=== PATIENT | female | born 1985 ===

== ENCOUNTER 2024-01-17 03:29 | Outpatient (CLI) | payer OTHER, SELFPAY ==
[2024-01-17 11:36] LABS: Abs Immature Grans 0.04 10^3/uL (0.0-0.06); Absolute Basophil Count 0.04 10^3/uL (0.0-0.2); Absolute Eosinophil Count 0.17 10^3/uL (0.0-0.7); Absolute Lymphocyte Count 0.84 10^3/uL (1.2-3.4); Absolute Neutrophil Count 4.87 10^3/uL (1.2-6.7); Basophils % 0.6 %; Eosinophils % 2.6 %; HCT 34.9 % (36.0-46.0); HGB 11.4 g/dL (11.2-15.7); Immature Grans % 0.6 %; MCH 28.5 pg (27.0-33.0); MCHC 32.7 % (32.0-36.0); MCV 87 fL (80-95); MPV 10.5 fL (8.0-11.0); Monocytes % 7.7 %; Neutrophils % 75.5 %; Platelet Count 247 10^3/uL (130-400); RDW 14.3 % (11.7-14.6); RDW-SD 46.1 fL; WBC 6.46 10^3/uL (4.4-10.8)
[2024-01-17 19:31] LABS: Hepatitis B Surface Ag Negative (Negative)
[2024-01-17 20:02] LABS: HIV-1/2 Ag & Ab Screen Negative (Negative)
[2024-01-17 20:08] LABS: Hepatitis C Ab w Rflx HCV PCR Negative (Negative)
[2024-01-18 11:35] LABS: Varicella IgG Antibody Positive (See Note)
[2024-01-18 11:40] LABS: Rubella IgG Ab (UVM) Positive (See Note)
[2024-01-19 17:24] LABS: Syphilis IgG w/Reflex Nonreactive (Nonreactive)
== END 2024-01-17 03:30 | disposition home or self-care (01) ==
LOC: LBO 03:29
PROVIDERS: Advanced Practice Midwife; Visit Provider Advanced Practice Midwife
DX: Z34.91 Encounter for supervision of normal pregnancy, unspecified, first trimester (principal)
CPT/HCPCS: 36415; 86787; 86803; 86850; 86900; 86901; 87340; 87389; 85025; 86762; 86780

== ENCOUNTER 2024-01-17 11:00 | Outpatient (REF) | payer OTHER, SELFPAY ==
[2024-01-18 13:01] LABS: Chlamydia Result Negative (Negative); GC Result Negative (Negative)
== END 2024-01-17 11:01 | disposition home or self-care (01) ==
LOC: LBN 11:00
PROVIDERS: Visit Provider Advanced Practice Midwife
DX: O34.218 Maternal care for other type scar from previous cesarean delivery (principal); Z11.3 Encounter for screening for infections with a predominantly sexual mode of transmission; Z3A.16 16 weeks gestation of pregnancy
CPT/HCPCS: 87491; 87591; 87086

== ENCOUNTER 2024-04-18 03:06 | Outpatient (CLI) | payer OTHER, SELFPAY ==
[2024-04-18 15:44] LABS: HCT 31.6 % (36.0-46.0); HGB 10.1 g/dL (11.2-15.7); MCH 28.5 pg (27.0-33.0); MCV 89 fL (80-95); MPV 10.1 fL (8.0-11.0); Platelet Count 241 10^3/uL (130-400); RBC 3.55 10^6/uL (3.93-5.22); RDW 14.1 % (11.7-14.6); WBC 9.51 10^3/uL (4.4-10.8)
[2024-04-18 15:55] LABS: Glucose,1 Hr (Glucola) 90 mg/dL (80-140)
== END 2024-04-18 03:07 | disposition home or self-care (01) ==
LOC: LBO 03:06
PROVIDERS: Advanced Practice Midwife; Visit Provider Obstetrics & Gynecology
DX: Z34.93 Encounter for supervision of normal pregnancy, unspecified, third trimester (principal)
CPT/HCPCS: 36415; 82950; 85027

== ENCOUNTER 2024-05-06 01:20 | Outpatient (CLI) | payer OTHER, SELFPAY ==
--- NOTE | 2024-05-06 09:45 | DI.US_ITS ---
Exam(s) US OB KINGSLEY WEIGHT EXAM: US OB KINGSLEY WEIGHT CLINICAL HISTORY: uterine fibroids affecting ,O34.10,d25.9. TECHNIQUE: Transabdominal obstetrical ultrasound performed. COMPARISON: US US OB 2-3 TRIMESTER from 02/15/2024 FINDINGS: Number of fetuses: 1 position: CEPHALIC Placental location: There is a grade 2 anterior placenta. No evidence of previa. BIOMETRIC DATA: BPD: 7.44cm, 29weeks 6days HC: 27.71cm, 30weeks 2days AC: 25.67cm, 29weeks 6days FL: 5.5cm, 29weeks EFW: 1,425.21g, 3lb 3.13oz, 3% Composite Age: 29weeks 5days PAULINE: 07/17/2024 Heart Rate: 157bpm Amniotic fluid index: 15.56cm. The largest pocket is 6.6 cm. Umbilical artery: PI: RI: S/D Proximal: PI = 0.99: RI = 0.68: S/D = 3.1 Mid: PI = 1.04: RI = 0.67: S/D = 3.0 Placental: PI = 0.98: RI = 0.57: S/D = 2.3 IMPRESSION: 1. Single live intrauterine gestation as above. 2. Estimated weight is 1425gms. This is the less than 3rd percentile. 3. Amniotic fluid index is 15.6 cm. Largest pocket is 6.6 cm. DATA REPOSITORY:
== END 2024-05-06 01:40 ==
LOC: DI 01:20
PROVIDERS: Visit Provider Advanced Practice Midwife
DX: O34.13 Maternal care for benign tumor of corpus uteri, third trimester (principal); D25.9 Leiomyoma of uterus, unspecified; Z3A.30 30 weeks gestation of pregnancy
CPT/HCPCS: 76816

== ENCOUNTER 2024-07-04 11:49 | Outpatient (REF) | payer OTHER, SELFPAY | END 2024-07-04 11:50 | disposition home or self-care (01) | LOC: LBN 11:49 | PROVIDERS: Visit Provider Obstetrics & Gynecology | DX: Z34.93 Encounter for supervision of normal pregnancy, unspecified, third trimester (principal) | CPT/HCPCS: 87081 ==

== ENCOUNTER 2024-07-16 03:19 | Outpatient (CLI) | payer OTHER, SELFPAY ==
[2024-07-16 10:56] LABS: Abs Immature Grans 0.12 10^3/uL (0.0-0.06); Absolute Basophil Count 0.04 10^3/uL (0.0-0.2); Absolute Eosinophil Count 0.04 10^3/uL (0.0-0.7); Absolute Lymphocyte Count 0.81 10^3/uL (1.2-3.4); Absolute Monocyte Count 0.84 10^3/uL (0.1-0.8); Basophils % 0.5 %; Eosinophils % 0.5 %; HCT 35.9 % (36.0-46.0); HGB 11.7 g/dL (11.2-15.7); Immature Grans % 1.6 %; Lymphocytes % 10.7 %; MCH 29.4 pg (27.0-33.0); MCHC 32.6 % (32.0-36.0); MCV 90 fL (80-95); MPV 11.4 fL (8.0-11.0); Monocytes % 11.1 %; Neutrophils % 75.6 %; Platelet Count 167 10^3/uL (130-400); RBC 3.98 10^6/uL (3.93-5.22); RDW 14.9 % (11.7-14.6); RDW-SD 49.6 fL; WBC 7.55 10^3/uL (4.4-10.8)
== END 2024-07-16 03:20 | disposition home or self-care (01) ==
LOC: LBO 03:19
PROVIDERS: Visit Provider Obstetrics & Gynecology
DX: Z01.818 Encounter for other preprocedural examination (principal)
CPT/HCPCS: 36415; 86850; 86900; 86901; 85025

== ENCOUNTER 2024-07-16 19:30 | Inpatient (IN) | payer OTHER, SELFPAY ==
[2024-07-16] VITALS (11 sets, daily range): BP systolic 117–121; BP diastolic 59–64; PULSE 79–97; RESP 18; TEMP 36.8–37.1; O2SAT 97–99; BMI 31.2
--- NOTE | 2024-07-16 19:50 | HPE_ITS ---
Date of service: 07/16/24 Time of Service: 19:50 Assessment and Plan Assessment and plan (1) : Status: Acute Assessment and plan: at 39 weeks and 3 days. Spontaneous rupture of membranes. Previous delivery. Will proceed to the OR tonight for repeat delivery. Risk, benefits, and alternatives all discussed with the patient in full informed consent was previously obtained. (2) Uterine fibroids affecting : Status: Acute Assessment and plan: 5 cm, anterior, calcified, 2 cm posterior (3) Advanced maternal age (AMA) in : Status: Acute (4) History of delivery: OB-HPI Labor/Delivery History of Present Illness Reason for Visit: Delivery Chief Complaint: Suspected Rupture of Membranes , Associated Signs and Symptoms of Suspected ROM: Gush of fluid. PAULINE Calculator Estimated Delivery Date Method Current WG Current Estimate 07/20/24 Ultrasound #1 39w 3d Other Estimates 06/30/24 LMP (Certain) 42w 2d Comments: Patient is scheduled for repeat section 07/17/2024. She called with spontaneous rupture of membranes for a large amount of clear fluid tonight. She presented to the hospital with gross rupture of membranes. Vital signs are stable. heart tones are appropriate at 150 moderate variability. She is awaiting the arrival of her . Will notify the OR crew for her repeat C- section tonight. All questions were answered. History of Present Expected Delivery Route/Plan RCS, CNM care until third trimester per patient request. Yunior Begin - second baby together Specific Issues/Plan 1. Prior CS: records request sent 01/16 for op note and office labs. resent 02/14____ 2. Uterine fibroids one measuring 5.5 x 5.5 cms and another 1.8 cms noted at 1st trimester US. Calcifications suggesting Uterine fibroids noted on 20 week US at [facility], schedule 32 week growth US 2a. Ultrasound findings reviewed in [place] in 2019 shows 6.3 myometrial fibroid in superior uterus and 6.9 myometrial fibroid in the mid anterior wall. 3. AMA, declines cfDNa and MFM / Level II US at initial OB visit, CF previously neg 2019 and SMA not done with previous 4. counseled on lo-dose ASA due to AMA and [place] ethnicity, she declines 5. Anemia Hgb 10.1 HCT 31.6- Was taking gummies, ferrous sulfate escribed to brenda e daily, Narrative: Spontaneous rupture of membranes tonight at approximately 6:30 PM. Will proceed to the OR tonight for repeat delivery. Review of Systems Constitutional Constitutional: Reports as per HPI and Reports system reviewed and no additional complaints, except as documented Eyes Eyes: Reports system reviewed and no additional complaints, except as documented Cardiovascular Cardiovascular: Reports system reviewed and no additional complaints, except as documented Respiratory Respiratory: Reports system reviewed and no additional complaints, except as documented Gastrointestinal Gastrointestinal: Reports system reviewed and no additional complaints, except as documented Genitourinary Genitourinary: Reports system reviewed and no additional complaints, except as documented Musculoskeletal Musculoskeletal: Reports system reviewed and no additional complaints, except as documented Integumentary/Breasts Skin/Breast: Reports system reviewed and no additional complaints, except as documented Psychiatric Psychiatric: Reports system reviewed and no additional complaints, except as documented PFSH All Active Problems (Updated 05/22/24 @ 12:35 by Marcia Chester DO) IUGR (intrauterine growth restriction) affecting care of mother (Acute) Seen at [facility]. Appropriate growth. Appropriate fluid. Anemia (Chronic) Advanced maternal age (AMA) in (Acute) Uterine fibroids affecting (Acute) (Acute) Surgical History History of delivery Family History Mother Stroke Hypertension Social History Smoking/Tobacco Use Status: Never Second Hand Exposure: No Smoking risk assessment performed?: Yes Alcohol Intake: never Drug use: Never Adopted: No Household members: spouse and children Housing: apartment Number of Children: 1 Communication Needs: None Pets and animals: No Sexually active: Yes Do you think of yourself as: straight/heterosexual Current gender identity: female What is your relationship status?: living with partner How often do you talk on the phone with friends or family?: three or more times per week How often do you get together with friends or relatives?: three or more times per week How often do you attend episcopalian or mandaeism services?: decline to answer Do you belong to any clubs or organized social groups?: decline to answer Panel score (0-1 are the most socially isolated patients): 2 What type of physical activity do you participate in: walking and aerobic Duration: 15-30 minutes/day Frequency: 3-4 times per week Special chadwick needs: No Agree to transfusion: Yes Seatbelt use: always Helmet use: No Drive intox or ride w/intox corporate driver: No Do you feel safe at home: Yes Do you feel safe in your relationship?: Yes Victim of physical abuse: No Victim of emotional abuse: No Victim of sexual abuse: No Would you like helpful sources: No History History 2 Para 1 Hx # Term Pregnancies 1 Multiple births Hx # Pregnancies Ectopic pregnancies AB induced Hx Number of Living Children 1 AB spontaneous Past Pregnancies Del. Date GA/Weeks # Preg Succ Route Wgt Sex Labor Lgth Anesth esia Location Prov Complic 01/13/19 40 Yes 8 lb 9 oz Male 48 hrs Si zbigniew, FEMI Meds Allergies and Home Medications Allergies Allergy/AdvReac Type Severity Reaction Status Date / Time No Known Allergies Allergy Verified 07/16/24 09:46 Home Medications ?Medication ?Instructions ?Recorded ?Confirmed ?Type vitamin #56-iron 35 mg 1 cap PO DAILY 01/17/24 04/09/24 History and 5 mg-folic acid 1 mg-dha capsule ferrous sulfate 325 mg (65 mg 325 mg PO DAILY #30 tabs 04/18/24 Rx iron) tablet (Feosol) Exam Physical Exam Vital Signs Reviewed: Yes Constitutional Constitutional: no acute distress Detailed Labor and Delivery Exam Smith Score: Cervical Points Exam 0 1 2 3 Dilation Closed 1-2cm 3-4 cm 5-6cm Effacement 0-30% 40-50% 60-70% 80% Consistency Firm Medium Soft Station -3 -2 -1,0 +1,+2 Position Posterior Mid Anterior Fetus A Heart Rate Baseline: 145 Monitor Accelerations: Present Monitor Decelerations: None Variability: Moderate (6-25 BPM) Est. Weight: 7 lb 8 oz Date of Membrane Rupture: 07/16/24 Time of Membrane Rupture: 18:30 Assessment Note: Category 1, reactive nonstress test HEENT Exam HEENT Exam: Normal Neck Exam Neck Exam: Normal Chest/Brest/Axilla Exam Chest Exam: Normal Respiratory Exam Respiratory Exam: Normal Detailed Respiratory Exam Respiratory: Present CTA bilaterally; Absent rales, rhonchi or wheezes Detail Cardiovascular Exam Cardiovascular: Present RRR, S1 and S2; Absent murmur Extremities Exam Extremities Exam: Normal Skin Exam Skin Exam: Normal Neurological Exam Neurological Exam: Normal Psychiatric Exam Psychiatric Exam: Normal Risk Assessment Risk for Shoulder Dystocia Historical/Initial OB: NEGATIVE FOR: Pelvic Abnormality, Pre- BMI>30, Previous Shoulder Dystocia or Previous Macrosomia Date/Initial: planning repeat C/S KH Risk for Pre-Eclampsia Date Initiated/Initials: 01/17/24 KH Yes, if one or more: NEGATIVE FOR: Hx Pre-E/Gest HTN, Chronic HTN, Multiple Gestation, Pre-gestational DM, Renal Disease, Systemic Lupus or APA Syndrome Yes, if 2 or more: POSITIVE FOR: Age>= 35 yrs and ethinicty Risk for Post- Hemorrhage Initial: NEGATIVE FOR: Multiple Gestation, Previous PPH, Known Clotting Deficiency, Grand Multiparity or Anticoagulation Risks Reviewed Risks Reviewed Upon Admission: Yes
[2024-07-16] MEDS: Lactated Ringers 1,000 ML 200 ML IV (20:38)
[2024-07-16] MEDS: AZITHROMYCIN 500 MG in Normal Saline 250 ML 250 MG IVPB (21:01)
--- NOTE | 2024-07-16 21:08 | ANES.PREOP_ITS ---
General Info Date of Service Date Performed: 07/16/24 Height: 5 ft Weight: 72.575 kg Body Mass Index (BMI): 31.2 Surgical Procedure: Operation Date: 07/16/24 21:00 Proposed Procedure Side Surgeon p Section Marcia Chester, DO Actual Procedure Side Surgeon p Section Marcia Chester, DO Pre-Op Diagnosis Post-Op Diagnosis RUPTURED MEMBRANE/ ADVANCED MATERNAL AGE RUPTURED MEMBRANE/ ADVANCED MATERNAL AGE Meds Allergies and Home Medications Allergies Allergy/AdvReac Type Severity Reaction Status Date / Time No Known Allergies Allergy Verified 07/16/24 09:46 Home Medication ?Medication ?Instructions ?Recorded vitamin #56-iron 35 mg 1 cap PO DAILY 01/17/24 and 5 mg-folic acid 1 mg-dha capsule ferrous sulfate 325 mg (65 mg 325 mg PO DAILY #30 tabs 04/18/24 iron) tablet (Feosol) Current Visit Medications: Current Medications Generic Name Dose Route Start Last Admin Trade Name Freq PRN Reason Stop Dose Admin Citric Acid/Sodium Citrate 30 ml 07/16/24 20:00 Sodium Citrate 30 Ml Cup PO PREOP KARRIE Cefazolin Sodium/Dextrose 2 gm in 50 mls @ 100 mls/hr 07/16/24 19:30 Ancef Duplex IVPB PREOP KARRIE Azithromycin 500 mg/ Sodium 250 mls @ 250 mls/hr 07/16/24 19:30 07/16/24 21:01 Chloride IVPB 250 mls/hr PREOP KARRIE Administration Ringer's Solution 1,000 mls @ 200 mls/hr 07/16/24 19:30 07/16/24 20:38 IV 200 mls/hr INFUSION KARRIE Administration IV Miscellaneous Supplies 1 each 07/16/24 19:30 Iv Access IV DIRECTED KARRIE Sodium Chloride 0 ml 07/16/24 19:30 Normal Saline Flush 10 Ml Syr IVP PRN PRN Sodium Chloride 0 ml 07/16/24 20:00 Normal Saline Flush 10 Ml Syr IVP BID KARRIE Sodium Chloride 0 ml 07/16/24 19:30 Normal Saline 10 Ml Vial IJ DIRECTED PRN PFSH Active Problems Active Problems: Problem Status Onset Code IUGR (intrauterine growth restriction) affecting care of mother Acute O36.5990 Anemia Chronic D64.9 Advanced maternal age (AMA) in Acute Uterine fibroids affecting Acute O34.10, D25.9 Acute Z34.90 Surgical History Surgical History History of delivery Tobacco Smoking/Tobacco Use Status: Never Second hand exposure: No Alcohol Alcohol Intake: never Substance Use Substance use: Never Prental History History 2 Para 1 Hx # Term Pregnancies 1 Multiple births Hx # Pregnancies Ectopic pregnancies AB induced Hx Number of Living Children 1 AB spontaneous Past Pregnancies Del. Date GA/Weeks # Preg Succ Route Wgt Sex Labor Lgth Anesth esia Location Prov [facility] 01/13/19 40 Yes 3883.885 g Male 48 hrs S FEMI [place] Vital Signs and Lab Results Vital Signs Most Recent Vital Signs in EMR: Most Recent Vital Signs Temp Pulse Resp BP Pulse Ox 36.8 C 84 18 117/64 97 07/16/24 20:08 07/16/24 20:22 07/16/24 20:08 07/16/24 20:08 07/16/24 20:21 Lab Results Blood Type / Crossmatch: Antibody Screen NEGATIVE 07/16/24 Complete Blood Count: White Blood Count 7.55 10^3/uL (4.4-10.8) 07/16/24 10:48 Red Blood Count 3.98 10^6/uL (3.93-5.22) 07/16/24 10:48 Hemoglobin 11.7 g/dL (11.2-15.7) 07/16/24 10:48 Hematocrit 35.9 % (36.0-46.0) L 07/16/24 10:48 Platelet Count 167 10^3/uL (130-400) 07/16/24 10:48 Complete Metabolic Panel: No Data to Display Liver Function Panel: No Data to Display Coagulation Panel: No Data to Display Cardiac Panel: No Data to Display Arterial Blood Gas: No Data to Display Venous Blood Gas: No Data to Display Pancreas Panel: No Data to Display Thyroid Panel: No Data to Display Infectious Disease: No Data to Display Blood Cultures: No Data to Display Toxicology Panel: No Data to Display Panel: No Data to Display Anesthesia Assessment and Plan Anesthesia History Personal History: No History of Anesthesia Complications Family History: No Family History of Anesthesia Complications Exercise Tolerance Exercise Tolerance: Metabolic Equivalents>4 Pertinent Negatives Pertinent Negatives: No Symptoms of GERD Cardiac & Pulmonary Exam Cardiac Exam: Normal S1/S2 Heart Sounds Pulmonary Exam: Clear Bilateral Breath Sounds Implantable Cardiac Device Does patient have a Pacemaker or an ICD?: No Airway Exam Known Difficult Airway: No Mallampati Class: 3 Mouth Opening: Normal (> 3cm) Thyromental Distance: Greater than 3 cm Neck Range of Motion: Full ROM Neck Circumference: Normal Teeth Condition: Normal Dentition ASA Classification ASA Score: ASA 2 Emergency Case?: No NPO Status NPO Status: NPO Clear Liquids>2 hours Status Status: Confirmed (full term) Anesthesia Plan Resuscitation Status: Full Code Anesthesia Technique: Spinal Anesthesia Airway Planned: Natural Airway Monitors Used: Standard Monitors
[2024-07-16] MEDS: Lactated Ringers 1,000 ML 150 ML IV ×2 (21:28→22:43)
[2024-07-16] MEDS: ceFAZolin 2 GM/50 ML BAG IVPB (21:48)
--- NOTE | 2024-07-16 22:16 | PLAC_PTH ---
PATIENT: Ghada Smallwood LOC: OBS U#:[id number] AGE/SX: 39/F ROOM: OBS.305 RE07/16/[address]: Marcia Chester DO : 1985 BED: A DIS: 07/20/2024 SPEC #: [id number] RECD: 07/17/24 12:43 STATUS: SOUT REQ #: [id number] KELLIE: 07/16/24 22:[address]: Marcia Chester DEPT: Surgical Specimen RECD BY: Latonya Gardner ENTERED: 07/17/24 12:43 SP TYPE: PLAC OTHR DR: Unknown,Unknown Tissues: 1 - PLACENTA (3RD TRIMESTER) Procedures: GROSS AND MICRO LEVEL 5 Comments: [id number]
[2024-07-16] MEDS: Bupivacaine 0.25% Pres-Free 30 ML VIAL (23:32)
[2024-07-17] VITALS (120 sets, daily range): BP systolic 102–179; BP diastolic 55–84; PULSE 81–193; RESP 16; TEMP 36.9–37.1; O2SAT 96–100
--- NOTE | 2024-07-17 00:11 | W.ANESPOSTOP ---
Postoperative Evaluation Date, Time and Location Date Performed: 07/17/24 Time Performed: 00:11 Patient Location: Obstetrics Vital Signs Most Recent Imported Vital Signs: Most Recent Vital Signs Temp Pulse Resp BP Pulse Ox 36.8 C 106 H 18 121/59 L 99 07/16/24 20:08 07/17/24 00:10 07/16/24 20:08 07/16/24 23:59 07/17/24 00:10 Assessment Mental Status: Awake (Alert & Oriented to Patient Baseline) Airway and Respiratory Function: Patent airway with normal (patient baseline) respiratory exam Cardiovascular Function: Hemodynamically Stable Hydration Status: Adequately Hydrated Nausea & Vomiting: No Nausea or Vomiting Pain: Pt. Denies Any Pain Peripheral Nerve Block: Patient did not receive a nerve block
--- NOTE | 2024-07-17 00:40 | PDOC.OPNB_ITS ---
Date of service: 07/17/24 Time of Service: 00:40 Operative Note Operative Note Delivery Method: Unscheduled STAT: No and Repeat Previous LT Incision: Yes DATE OF PROCEDURE: 07/16/24 PRE-OP DIAGNOSES: at 39 weeks 4 days, spontaneous rupture of membranes POST-OP DIAGNOSES: same ( malposition, markedly enlarged uterine fibroids) PROCEDURE: Repeat section with a T uterine incision, and T abdominal incision SURGEON: Marcia Chester Insurance Claims Examiner: Neda Carpenter Estimated blood loss (mL): 1,600 Pathology: other (Placenta, cord blood gases) Complications: Other (T uterine incision, T abdominal incision) Patient was transported to: floor Patient's condition: stable Indications: Prior delivery. Uterine fibroids, spontaneous rupture of membranes Findings: Malposition of the fetus with the vertex to the right and wedged behind the anterior uterine fibroid. 5 cm anterior uterine fibroid, 10 to 12 cm posterior uterine fibroid. Delivery of viable male with Apgars 2, 7, 9 Procedure Description: After full informed consent was obtained, patient was taken the operating suite. She had a scheduled repeat section for 07/17/2024, however she presented on 07/16/2024 with spontaneous rupture of membranes. In light of this, the decision was made to proceed with her delivery. The risk, benefits, and alternatives were discussed with the patient in full informed consent had been previously obtained. She had an IV started and was taken the operating suite. She was then placed in the seated position and spinal anesthesia administered. pneumatic compression stockings for DVT prophylaxis. She had surgical site infection prophylaxis with 2 g of Ancef and 500 mg of azithromycin. She was placed in dorsal supine position with leftward tilt and prepped and draped in the usual sterile fashion. She had a vaginal preparation followed by Haywood catheter insertion. Her spinal anesthesia was tested and found to be adequate. A low transverse abdominal incision was made through her previous skin incision. This was carried down to the underlying fascia which was incised in the midline and the fascial incision extended laterally. The rectus muscles were identified and in the midline. The peritoneum was identified and entered sharply. At this point the peritoneal incision was then extended superiorly and inferiorly and the bladder blade was inserted. There was noted to be small amount of filmy adhesions of the bladder to the lower uterine segment which were meticulously dissected away from the lower uterine segment. There was noted to be the previously mentioned anterior uterine fibroid which was more to the right lower quadrant of the uterus. Initially a low transverse uterine incision was made. The lower uterine segment was thick and nonlabored. This was elevated with grasping the incision with Allis clamps. The uterine incision was then extended laterally. At this point the left shoulder was identified and the left arm spontaneously delivered through the incision. On examination, it was very difficult to ascertain the position. The vertex was not low in the pelvis, however more towards the right segment of the uterus, trapped behind the anterior uterine fibroid. In light of this and, with difficulty extracting the fetus atraumatically, the skin incision was extended vertically to approximately 3 cm below the umbilicus, and the uterine incision was extended vertically in a T shape with the Casarez scissors. This allowed for more appropriate exposure of the fetus. The vertex was then swept around underneath the right lower uterine fibroid. The shoulders and body then followed without difficulty. A three-vessel cord was noted, clamped x 2, and cut. The baby was handed off to the waiting pediatric group. At this point a segment of cord was obtained for cord blood sampling. The placenta was manually expressed from the uterus. There was no cord blood drawn. At this point the uterus was elevated out of the abdomen and the abdomen cleared of all clot and debris. The posterior uterine fibroid was markedly enlarged approximately 10 to 12 cm in greatest dimension. With a T shape of the uterine incision, in a systematic fashion first the vertical aspect of the uterine incision was closed with 3 layers of suture of 0 Monocryl. First layer being running locked, second layer being imbricated, and the third layer being reapproximation of the subserosal tissue. With the vertical aspect of the incision closed and hemostasis achieved, the low transverse portion of the uterine incision was closed in a similar fashion with 3 layers, first being running locked, second being imbricating and the third being reapproximation of the subserosal area. There was 1 area at the fundal region of the uterus which was bleeding due to an area that was denuded. This was oversewn with a single stitch. At the apical corner of the T8 uterine incision, there was a modest amount of bleeding which was oversewn with 3 [id number] sutures of 0 Monocryl suture. At this point hemostasis was achieved. Patient did receive TXA for 1 dose. She also had Pitocin for uterine tonicity. Due to the complexity of the uterine incision, and the marked enlargement of the uterus itself, I did feel it necessary to have a second set of surgical eyes intraoperatively. Dr. Hinojosa was called for evaluation. She inspected the uterus, uterine incision, and agreed that hemostasis had been achieved. With this assurance, the uterus was returned to the abdomen. The fascial incision was then closed, first the vertical aspect of the fascial incision to its apex, followed by the transverse aspect of the fascial incision. The subcutaneous tissue both in the vertical and horizontal components of the incision were reapproximated with 3-0 Vicryl to relieve tension from the suture edge. Uterine incision was then closed, first the vertical aspect followed by the horizontal aspect in a subcuticular fashion. Steri-Strips and a sterile dressing were placed. The uterus remained firm throughout the remainder of her procedure it is markedly enlarged and approximately 4 cm above the umbilicus. Haywood catheter was in place, draining clear yellow urine with a urine output intraoperatively of 450 cc. Placenta was sent for examination. Cord blood gases were obtained. Complications were as previously described with malpositioning of the fetus and difficulty in extraction of the vertex around the anterior lower uterine fibroid. This was resolved by extending the uterine incision to allow delivery of the male . All of these findings were discussed both intraoperatively and postoperatively with the patient and her . There was an opportunity for further questions and answers. We will continue to debrief over the course of her postoperative stay. Patient does understand if she has further or ongoing bleeding, the next step in management would be exploratory laparotomy and hysterectomy. All questions were answered today. EBL: 1600 cc Findings: Markedly enlarged fibroid uterus with an anterior lower uterine segment fibroid, and a markedly enlarged posterior uterine fibroid. Delivery of a viable male infant with Apgars to 7 and 9 respectively. Fluid: Crystalloid per anesthesia Pathology: Placenta for examination
[2024-07-17 06:58] LABS: Abs Immature Grans 0.25 10^3/uL (0.0-0.06); Absolute Basophil Count 0.05 10^3/uL (0.0-0.2); Absolute Eosinophil Count 0.05 10^3/uL (0.0-0.7); Basophils % 0.2 %; Eosinophils % 0.2 %; HCT 29.4 % (36.0-46.0); HGB 9.4 g/dL (11.2-15.7); Immature Grans % 1.1 %; Lymphocytes % 2.3 %; MCH 29.5 pg (27.0-33.0); MCV 92 fL (80-95); Monocytes % 5.5 %; Neutrophils % 90.7 %; Platelet Count 152 10^3/uL (130-400); RBC 3.19 10^6/uL (3.93-5.22); RDW 14.9 % (11.7-14.6); RDW-SD 50.7 fL; WBC 22.59 10^3/uL (4.4-10.8)
[2024-07-17 06:59] LABS: Absolute Lymphocyte Count 0.52 10^3/uL (1.2-3.4); Absolute Monocyte Count 1.24 10^3/uL (0.1-0.8); Absolute Neutrophil Count 20.49 10^3/uL (1.2-6.7)
--- NOTE | 2024-07-17 07:13 | W.PM.OBPNV1 ---
Date of service: 07/17/24 Time of Service: 07:13 Exam Physical Exam Vital signs: Temp Pulse Resp BP Pulse Ox 98.7 F 88 16 107/58 L 100 07/17/24 06:05 07/17/24 06:05 07/17/24 06:05 07/17/24 06:05 07/17/24 03:40 Vital Signs Reviewed: Yes Narrative: Doing well, postop day 1 status post repeat section with T uterine incision and vertical extension of her abdominal incision Constitutional Constitutional: no acute distress HEENT Exam HEENT Exam: Normal Neck Exam Neck Exam: Normal Detailed Respiratory Exam Respiratory: Present CTA bilaterally; Absent rales, rhonchi or wheezes Abdominal Exam Comments: Soft, mild distention. Active bowel sounds. Fundal Exam Fundus: Firm Comment: 3 cm above the umbilicus, globally enlarged. Baseline from surgery. Marked uterine fibroids. Extremities Exam Extremity Exam: negative Calf Tenderness or Edema Skin Exam Skin Exam: Normal Neurological Exam Neurological Exam: Normal Psychiatric Exam Psychiatric Exam: Normal
[2024-07-17 07:24] LABS: Diff Comment Diff Reviewed
[2024-07-17 07:25] LABS: RBC Morphology Normal
[2024-07-17] MEDS: Docusate Sodium 100 MG CAP PO (08:22)
[2024-07-17] MEDS: Normal Saline Flush 10 ML SYR IVP (08:23)
[2024-07-17] MEDS: Ibuprofen 600 MG TAB PO ×2 (13:54→22:00)
[2024-07-17] MEDS: Acetaminophen 325 MG TAB 650 MG PO ×2 (13:54→22:01)
[2024-07-18] VITALS (7 sets, daily range): BP systolic 91–111; BP diastolic 53–58; PULSE 86–109; RESP 14–16; TEMP 36.7–37.6; O2SAT 97–98
[2024-07-18] MEDS: Docusate Sodium 100 MG CAP PO ×2 (05:59→21:00)
[2024-07-18] MEDS: Ibuprofen 600 MG TAB PO (05:59)
[2024-07-18] MEDS: Acetaminophen 325 MG TAB 650 MG PO (05:59)
[2024-07-18 07:12] LABS: HCT 25.4 % (36.0-46.0); HGB 8.4 g/dL (11.2-15.7); MCH 29.7 pg (27.0-33.0); MCHC 33.1 % (32.0-36.0); MCV 90 fL (80-95); MPV 11.8 fL (8.0-11.0); Platelet Count 156 10^3/uL (130-400); RBC 2.83 10^6/uL (3.93-5.22); RDW 15.2 % (11.7-14.6); RDW-SD 50.3 fL
[2024-07-18] MEDS: oxyCODONE 5 mg/Acetaminophen 325 mg TAB PO ×3 (12:07→20:55)
--- NOTE | 2024-07-18 12:13 | W.PM.OBPNV1 ---
Date of service: 07/18/24 Time of Service: 12:14 Assessment and Plan Assessment and plan (1) delivery delivered: Status: Acute Assessment and plan: POD 2 pLTCS with vertical extension of transverse KEIKO incision and Pfannenstiel skin incsion. (2) Uterine fibroids affecting : Status: Acute Subjective Subjective Interval history: POD2 pLTCS with uterine extension. Pain controlled with Acetaminophen and Ibuprofen during night. Pt feeling slightly more pain this am. I recommended that she take additional Percocet for pain not controlled with NSAIDs Patient comments: Incisional pain, Tolerating diet (decreased appt) and Flatus present; no Bowel Movement baby status: Doing well, Nursing well, Rooming in and Strong Bonding Observed feeding status: Exclusively breast feeding Exam Physical Exam Vital signs: Temp Pulse Resp BP Pulse Ox 98.8 F 95 H 16 91/57 L 97 07/18/24 07:30 07/18/24 07:30 07/18/24 07:30 07/18/24 07:30 07/18/24 07:30 Vital Signs Reviewed: Yes Constitutional Constitutional: no acute distress Neck Exam Neck Exam: Normal Respiratory Exam Respiratory Exam: Normal Cardiovascular Exam Cardiovascular Exam: Normal Abdominal Exam Abdomen: Tender (Mepilex dressings intact ) Fundal Exam Fundus: Below Umbilicus and Firm Rectal Exam Rectal Exam: Not Done Extremities Exam Extremity Exam: Not Done Back/Spine/Pelvis Exam Back Exam: Normal Skin Exam Skin Exam: Normal Neurological Exam Neurological Exam: Normal Psychiatric Exam Psychiatric Exam: Normal Results Hemoglobin/Hematocrit: Hgb 8.4 g/dL (11.2-15.7) L 07/18/24 06:00 Hct 25.4 % (36.0-46.0) L 07/18/24 06:00 Abnormal Lab Findings: Abnormal Labs 07/17/24 07/18/24 06:05 06:00 WBC 22.59 H 16.20 H RBC 3.19 L 2.83 L Hgb 9.4 L D 8.4 L Hct 29.4 L 25.4 L RDW 14.9 H 15.2 H MPV 12.0 H 11.8 H Absolute Neutrophils 20.49 H Absolute Lymphocytes 0.52 L Absolute Monocytes 1.24 H Additional Findings Results: Drop in H/H expected as 07/17/24 CBC drawn less than 8 hrs after surgery
[2024-07-19 03:00] VITALS: BP 104/58; PULSE 88; RESP 16; TEMP 37.2
[2024-07-19] MEDS: Acetaminophen 325 MG TAB 650 MG PO ×3 (06:30→23:29)
[2024-07-19] MEDS: Docusate Sodium 100 MG CAP PO ×2 (06:30→18:48)
[2024-07-19] MEDS: Ibuprofen 600 MG TAB PO ×4 (06:30→18:48)
[2024-07-19 07:20] VITALS: BP 105/58; PULSE 90; RESP 16; TEMP 37.1; O2SAT 97
--- NOTE | 2024-07-19 08:50 | W.PM.OBPNV1 ---
Date of service: 07/19/24 Time of Service: 08:51 Assessment and Plan Assessment and plan (1) delivery delivered: Status: Acute Assessment and plan: Pt moving slowly after c/s. Not walking much but is OOB. I have recommended additional PP day on BC. Pain controlled with Percocet and NSAIDs. (2) care following delivery: Status: Acute Assessment and plan: breast milk in. Tenderness L breast secondary to ample supply. Recommended symptom relief. Plan discharge to home tomorrow. Subjective Subjective Interval history: Breast milk coming in. Still feeling sore from surgery. Requests another day. Patient comments: Incisional pain, Tolerating diet and Flatus present; no Bowel Movement Patient's Mood: Mood is good. Pleased that infant is well. [place] baby status: Doing well, Nursing well and Strong Bonding Observed feeding status: Exclusively breast feeding Exam Physical Exam Vital signs: Temp Pulse Resp BP Pulse Ox 98.8 F 90 16 105/58 L 97 07/19/24 07:20 07/19/24 07:20 07/19/24 07:20 07/19/24 07:20 07/19/24 07:20 Vital Signs Reviewed: Yes Constitutional Constitutional: no acute distress Breast Exam left upper outer: Breast Exam: Engorged and Tender Nipple Exam: Normal Comments: Pt reports swelling and mild discomfort L breast. Feels that a mild gland is swollen. Has been applying ice. Respiratory Exam Respiratory Exam: Normal Cardiovascular Exam Cardiovascular Exam: Normal Abdominal Exam Abdomen: Tender (incision covered with Mepilex dressing. ) Fundal Exam Fundus: Below Umbilicus and Firm Rectal Exam Rectal Exam: Not Done Extremities Exam Extremity Exam: Normal and Full ROM Back/Spine/Pelvis Exam Back Exam: Normal Skin Exam Skin Exam: Normal Neurological Exam Neurological Exam: Normal Psychiatric Exam Psychiatric Exam: Normal Results Hemoglobin/Hematocrit: Hgb 8.4 g/dL (11.2-15.7) L 07/18/24 06:00 Hct 25.4 % (36.0-46.0) L 07/18/24 06:00 Abnormal Lab Findings: Abnormal Labs 07/17/24 07/18/24 06:05 06:00 WBC 22.59 H 16.20 H RBC 3.19 L 2.83 L Hgb 9.4 L D 8.4 L Hct 29.4 L 25.4 L RDW 14.9 H 15.2 H MPV 12.0 H 11.8 H Absolute Neutrophils 20.49 H Absolute Lymphocytes 0.52 L Absolute Monocytes 1.24 H
[2024-07-19] MEDS: oxyCODONE 5 mg/Acetaminophen 325 mg TAB PO ×2 (11:58→18:48)
[2024-07-19 12:00] VITALS: BP 110/64; PULSE 99; RESP 18; TEMP 37.2; O2SAT 100
[2024-07-19] MEDS: Polyethylene Glycol 3350 17 GM PACKET PO ×2 (13:15→20:19)
[2024-07-19 19:30] VITALS: BP 110/61; PULSE 104; RESP 17; TEMP 37.6; O2SAT 98
[2024-07-19 23:30] VITALS: BP 99/55; PULSE 87; RESP 16; TEMP 37.2; O2SAT 98
[2024-07-20] MEDS: Ibuprofen 600 MG TAB PO ×2 (02:05→09:19)
[2024-07-20 04:30] VITALS: BP 109/53; PULSE 86; RESP 16; TEMP 36.8; O2SAT 98
[2024-07-20] MEDS: Acetaminophen 325 MG TAB 650 MG PO ×3 (04:48→13:09)
[2024-07-20 08:56] VITALS: BP 104/53; PULSE 101; RESP 18; TEMP 37.3; O2SAT 98
[2024-07-20] MEDS: Docusate Sodium 100 MG CAP PO (09:19)
--- NOTE | 2024-07-20 10:11 | W.PM.OBDISCH ---
Date of service: 07/20/24 Time of Service: 10:11 DS: Diagnosis Discharge Diagnosis (1) delivery delivered: Status: Acute (2) care following delivery: Status: Acute (3) Uterine fibroids affecting : Status: Acute Discharge Plan Disposition Patient Disposition: Home Condition: Improving Discharge Details Reason For Visit: Delivery Admit Date/Time: 07/16/24 19:30 Admit Provider: Marcia Chester Attending Provider: Marcia Chester Primary Care Provider: Unknown,Unknown Hospital Course Hospital Course: Pt admitted to with [facility] at 39w3d EGA. Pt had been scheduled for a repeat LTCS the following day. She underwent an unscheduled cesareab delivery. Findings at the time of c/s; malposition of the fetus with the vertex to the right and wedged behind the anterior uterine fibroid. 5 cm anterior uterine fibroid, 10 to 12 cm posterior uterine fibroid. Both skin and uterine incisions were extended vertically and viable male infant was delivered with Apgars 2, 7, 9. Wt [id number]. His parents have named him Tori. Pt's postop course was uncomplicated. She was discharged to home POD 3 successfully breast feeding and ambulatory. She will f/u in [facility] on 07/24/24 for dressing removal. Rx for Percocet efaxed to her pharmacy. 5/325mg every 6 hrs as needed for pain not relieved by Acetaminophen or Ibuprofen She will take OTC NSAIDs for pain. Home Meds and New Rx's Prescriptions: No Action PNV #[id number] acid-dha 35 mg iron-5 mg iron-1 mg capsule 1 cap PO DAILY ferrous sulfate [Feosol] 325 mg (65 mg iron) tablet 325 mg PO DAILY Qty: 30 5RF Discharge Instructions Stand Alone Forms: Instructions, Discharge Instruc Activity:: Activity as Tolerated Equipment/Supplies:: No Equipment Needed Diet:: As Tolerated OB:DS Summary Summary Delivery Method: Repeat Episiotomy Description: None Laceration Description: None Laceration Extension: N/A complications OB DS: none Contraception Discussed Contraception Discussed: No, Gender-Baby A: Male (Tori) weight: 7 lb 11.635 oz Disposition of Baby A: Home Status at Discharge Functional status at discharge: independent ambulation Overall status at discharge: patient is progressing back to baseline Mental Status: mental status grossly normal Speech and Movement: speech and movement normal Mood: congruent mood Affect: normal affect Quality:SDOH Health Related Social Needs: No Data to Display Exam Physical Exam Vital signs: Temp Pulse Resp BP Pulse Ox 99.1 F 101 H 18 104/53 L 98 07/20/24 08:56 07/20/24 08:56 07/20/24 08:56 07/20/24 08:56 07/20/24 08:56 Vital Signs Reviewed: Yes Constitutional Constitutional: no acute distress HEENT Exam HEENT Exam: Normal Neck Exam Neck Exam: Not Done Breast Exam Bilateral: Breast Exam: Engorged Nipple Exam: Normal Comments: No dominant masses. Outer upper quadrant somewhat tender secondary to breast enlargement Respiratory Exam Respiratory Exam: Normal Cardiovascular Exam Cardiovascular Exam: Normal Abdominal Exam Abdomen: Tender (less tender than yesterday) Comments: Dressing remains intact, clean and dry. Fundal Exam Fundus: Below Umbilicus and Firm Rectal Exam Rectal Exam: Not Done Extremities Exam Extremity Exam: Normal; negative Edema Back/Spine/Pelvis Exam Back Exam: Normal Skin Exam Skin Exam: Normal Neurological Exam Neurological Exam: Normal Psychiatric Exam Psychiatric Exam: Normal PFSH All Active Problems (Updated 07/19/24 @ 14:12 by Lavonne Hinojosa MD) care following delivery (Acute) delivery delivered (Acute) Repeat delivery. T uterine incision. T abdominal incision. Not a candidate for vaginal . markedly enlarged fibroid uterus. Delivery date 07/17/2024, male . IUGR (intrauterine growth restriction) affecting care of mother (Acute) Seen at [facility]. Appropriate growth. Appropriate fluid. Anemia (Chronic) Advanced maternal age (AMA) in (Acute) Uterine fibroids affecting (Acute) (Acute) Surgical History History of delivery Family History Mother Stroke Hypertension Social History (Updated 07/20/24 @ 10:23 by Lavonne Hinojosa MD) Smoking/Tobacco Use Status: Never Second Hand Exposure: No Smoking risk assessment performed?: Yes Alcohol Intake: never Drug use: Never Adopted: No Household members: spouse, children and other Details: SO-Yunior. 2 sons. Housing: apartment Number of Children: 2 Communication Needs: None Pets and animals: No Sexually active: Yes Do you think of yourself as: straight/heterosexual Current gender identity: female What is your relationship status?: living with partner How often do you talk on the phone with friends or family?: three or more times per week How often do you get together with friends or relatives?: three or more times per week How often do you attend advent or mosque services?: decline to answer Do you belong to any clubs or organized social groups?: decline to answer Panel score (0-1 are the most socially isolated patients): 2 What type of physical activity do you participate in: walking and aerobic Duration: 15-30 minutes/day Frequency: 3-4 times per week Special [place] needs: No Agree to transfusion: Yes Seatbelt use: always Helmet use: No Drive intox or ride w/intox otr flatbed driver: No Do you feel safe at home: Yes Do you feel safe in your relationship?: Yes Victim of physical abuse: No Victim of emotional abuse: No Victim of sexual abuse: No Would you like helpful sources: No History History 2 Para 2 Hx # Term Pregnancies 2 Multiple births Hx # Pregnancies Ectopic pregnancies AB induced Hx Number of Living Children 2 AB spontaneous Past Pregnancies Del. Date GA/Weeks # Preg Succ Route Wgt Sex Labor Lgth Anesthesia Location [facility] 01/13/19 40 Yes 8 lb 9 oz Male 48 hrs [place], [place] 07/16/24 No Yes 7 lb 11.635 oz Male KJ Delivery Date: 07/16/24 Last Updated by: Lavonne Hinojosa MD [facility] prior to scheduled repeat c/s. enlarged fibroid uterus and difficulty extracting fetus. Infant apgars 2, 7, 9. Tori' DS: Data Vitals/I&O Vitals and I&O: Vital Signs Temperature 99.1 F 07/20/24 08:56 Temperature 98.3 F 07/16/24 21:13 Temperature Source Oral 07/16/24 19:47 Temperature Source Oral 07/20/24 08:56 Pulse 101 H 07/20/24 08:56 Pulse 84 07/16/24 21:13 Pulse Rhythm Regular 07/20/24 08:56 Respiratory Rate 18 07/20/24 08:56 Respiratory Depth Normal 07/18/24 19:23 Blood Pressure 104/53 L 07/20/24 08:56 Blood Pressure 117/64 07/16/24 21:13 Blood Pressure Mean 70 07/20/24 08:56 Pulse Oximetry 98 07/20/24 08:56 Oxygen Delivery Method Room Air 07/16/24 20:08 Oxygen Flow Rate 0 07/16/24 20:08 Pain Level 2 07/19/24 18:48 Comment pt sleeping 07/18/24 22:58 Intake & Output 07/19/24 07/19/24 07/20/24 11:59 23:59 11:59 Other: Urine Color Yellow Yellow Urine Appearance Clear Clear Urine Odor None
[2024-07-20 11:21] VITALS: BP 102/57; PULSE 92; RESP 16; TEMP 37; O2SAT 98
== END 2024-07-20 13:30 | disposition home or self-care (01) | DRG 788 ==
PROVIDERS: Obstetrics & Gynecology Gynecology; Admitting Provider Obstetrics & Gynecology; Visit Provider Obstetrics & Gynecology
PROC: 10D00Z0 Extraction of Products of Conception, High, Open Approach (ICD-10-PCS; CPT 59514; principal; 2024-07-16 21:00)
DX: O34.211 Maternal care for low transverse scar from previous cesarean delivery (principal); O34.13 Maternal care for benign tumor of corpus uteri, third trimester; O32.8XX0 Maternal care for other malpresentation of fetus, not applicable or unspecified; Z37.0 Single live birth; Z3A.39 39 weeks gestation of pregnancy; N85.8 Other specified noninflammatory disorders of uterus; D25.1 Intramural leiomyoma of uterus; O99.02 Anemia complicating childbirth; D64.9 Anemia, unspecified
CPT/HCPCS: 59514; 36415; 85027; 85025; 88307; G0378; J0131; J0456; J0665; J0690; J1100; J1885; J2274; J2371; J2405; J3010